=== PATIENT | female | born 1945 | race Caucasian/White ===

== ENCOUNTER 2017-08-20 08:09 | Day surgery (SDC) | payer MEDICARE ==
--- NOTE | 2017-08-20 06:00 | History and Physical Report ---
DATE: 08/20/2017. CHIEF COMPLAINT AND HISTORY OF CHIEF COMPLAINT: This patient presents with a history of an intractable lumbar radiculopathy. Due to the failure of therapy, a spinal cord stimulator trial was conducted on 07/29/2017 with 75 to 85 percent pain control. Due to the failure of therapy, she is here for implantation of a permanent system. PAST MEDICAL HISTORY: Hypertension, hypothyroidism. PAST SURGICAL HISTORY: To be provided. MEDICATIONS ON ADMISSION: To be provided. ALLERGIES: To be provided. SOCIAL HISTORY: Caffeine. FAMILY HISTORY: Thyroid, asthma, diabetes, coronary artery disease. REVIEW OF SYSTEMS: The patient is appropriate and in no acute distress. The remainder of the systems review shows glasses, headaches, thyroid disease, asthma, hypertension, bladder dysfunction, diverticular disease, fibromyalgia. PHYSICAL EXAMINATION: General: Height and weight unavailable. Vital Signs: Not available. HEENT: Within normal limits. Lungs: Clear. Heart: Regular rate and rhythm. Abdomen: Nontender. Musculoskeletal: Examination of the musculoskeletal system shows the primary pain pattern to be in the low back and left leg. Motor and sensory field function is intact. There are no obvious deficits and no weakness. Neurologic: Cranial nerves are intact. IMPRESSION: 1. POSTLUMBAR LAMINECTOMY SYNDROME, ICD-10 CODE M96.1. 2. RADICULOPATHY, ICD-10 CODE M54.16 AND M54.17. PLAN: The patient is here on an outpatient basis for implantation of a permanent spinal cord stimulator. The potential risks, side effects, and complications have all been carefully reviewed and discussed. Information from the brand designer was provided and reviewed. Clinical specialist interaction from the brand designer was also provided. The patient understands the potential risks, side effects, and complications and agrees to proceed. JOB NUMBER: [id number] cc: Nathan Zavala
[~2017-08-20 08:09] MED LIST: ACETAMINOPHEN 1,000 MG/100 ML BTL IV ONE; FAMOTIDINE 20MG TABLET PO ONE; MECLIZINE 25 MG TABLET PO ONE; METOCLOPRAMIDE 10 MG TABLET PO ONE; VANCOMYCIN HCL 1,000 MG in DEXTROSE 5 % IN WATER 250 ML IVPB ONE
[2017-08-20] MEDS ORDERED: LIDOCAINE 1% MDV (10MG/ML) 20ML VIAL SQ ONE (08:10)
[2017-08-20] MEDS ORDERED: VANCOMYCIN HCL 1 GM VIAL IVPB ONE (08:10)
[2017-08-20] MEDS ORDERED: MIDAZOLAM HCL 2MG/2ML VIAL IV ONE (08:10)
[2017-08-20] MEDS ORDERED: FENTANYL PF 100MCG/2ML VIAL IV ONE (08:10)
[2017-08-20] MEDS ORDERED: PROPOFOL 10 MG/ML VIAL IV ONE (08:10)
[2017-08-20] MEDS ORDERED: FLUMAZENIL 1MG/10ML VIAL IV ONE (08:10)
[2017-08-20] MEDS ORDERED: MORPHINE SULFATE 5 MG/ML PFS IVP ONE (08:10)
[2017-08-20] MEDS ORDERED: BUPIVACAINE 0.5% W/EPI MPF 30 ML VIAL IVP ONE (08:10)
[2017-08-20] MEDS ORDERED: LIDOCAINE 1% W/EPI 1:200,000 MPF 30ML SQ ONE (08:10)
[2017-08-20] MEDS ORDERED: ONDANSETRON HCL IV 4 MG/2 ML VIAL IVP ONE (08:10)
[2017-08-20] MEDS ORDERED: HYDROMORPHONE HCL 2 MG/ML VIAL IM PRN ×2 (10:52)
[2017-08-20] MEDS ORDERED: METOCLOPRAMIDE HCL 10 MG/2 ML VIAL IVP PRN (10:52)
[2017-08-20] MEDS ORDERED: DIPHENHYDRAMINE HCL 25 MG CAPSULE PO PRN ×2 (10:52)
[2017-08-20] MEDS ORDERED: TEMAZEPAM 15 MG CAPSULE PO PRN ×2 (10:52)
[2017-08-20] MEDS ORDERED: METOCLOPRAMIDE 10 MG TABLET PO PRN (10:52)
[2017-08-20] MEDS ORDERED: SENNOSIDES/DOCUSATE SODIUM UD CAPSULE PO PRN ×2 (10:52)
[2017-08-20] MEDS ORDERED: HYDROCODONE/APAP 7.5/325MG TABLET PO PRN (10:52)
[2017-08-20] MEDS ORDERED: DIPHENHYDRAMINE HCL 50 MG/ML VIAL IVP PRN ×2 (10:52)
[2017-08-20] MEDS ORDERED: OXYCODONE/APAP 10MG-325MG TABLET PO PRN ×2 (10:52)
[2017-08-20] MEDS ORDERED: AL HYDROX/MAG HYDROX 30ML UD PO PRN (10:52)
[2017-08-20] MEDS ORDERED: ACETAMINOPHEN 325 MG TAB PO PRN ×2 (10:52)
[2017-08-20] MEDS: HYDROCODONE/APAP 7.5/325MG TABLET PO PRN ×3 (14:10→23:33)
--- NOTE | 2017-08-20 17:39 | Operative Note - Ferro ---
DATE OF SURGERY: 08/20/17 PREOPERATIVE DIAGNOSES: POST LUMBAR LAMINECTOMY SYNDROME, ICD-10 = M96.1 WITH RADICULOPATHY ICD-10 CODE = M54.16 AND M54.17. OPERATION: 1. FLUOROSCOPICALLY-GUIDED EPIDURAL ACCESS RIGHT T12-L1, PLACEMENT OF SPINAL CORD STIMULATOR LEAD 1, A [employer] 16 WITH 6 ELECTRODES POSITIONED LEFT T6. 2. FLUOROSCOPICALLY-GUIDED EPIDURAL ACCESS RIGHT, T11-12. PLACEMENT OF SPINAL CORD STIMULATOR LEAD 2, A [employer] 16 WITH 6 ELECTRODES POSITIONED RIGHT, T6. 3. COMPLEX PROGRAMMING OF LEAD 1 OVER 20 MINUTES FOLLOWED BY COMPLEX PROGRAMMING OF LEAD 2 OVER 20 MINUTES. 4. INCISION, SUBCUTANEOUS DISSECTION, AND ANCHORING OF LEAD 1 AND LEAD 2 TO SUPRASPINOUS FASCIA USING [employer] LOCKING ANCHOR. 5. INCISION, SUBCUTANEOUS DISSECTION, AND FORMATION OF A SUBCUTANEOUS POUCH AT RIGHT POSTERIOR GLUTEAL MARGIN FOR PLACEMENT OF GENERATOR IDENTIFIED A [employer] WAVEWRITER RECHARGEABLE. 6. TUNNELING BETWEEN POUCHES, PLACEMENT OF EXTERNAL PORTION OF LEAD 1 AND LEAD 2 INTO GENERATOR POUCH, EACH LEAD INTERFACED WITH GENERATOR. 7. PLACEMENT OF GENERATOR POUCH SECURING TO POSTERIOR FASCIA WITH NONABSORBABLE SUTURE. PLACEMENTS OF LEADS INTO POUCH. CLOSURE OF BOTH INCISIONS, VICRYL FOR FASCIA AND A RUNNING SUBCUTICULAR VICRYL FOR SKIN. DERMABOND CLOSURE. 8. COMPLEX RECOVERY ROOM PROGRAMMING INTERNAL GENERATOR HOME USE TWO STIMULATORS , 20 MINUTES. SURGEON: PADMINI TORRES D.O. ANESTHESIA: LOCAL SEDATION. ANESTHESIA PROVIDER: STEPHANIE SANTOS CRNA. INDICATION: This patient presents with a history of intractable lumbar radiculopathy. Due to the failure of therapies, and a successful spinal cord stimulator trial, the patient presents today for implantation of a permanent system. PROCEDURE: Intravenous line, vital sign monitoring, IV sedation, prepped and draped in sterile technique. Under imaging, from the right, the epidural interspace at T11-12 and 12-1 were both identified, marked, infiltrated then using two curved access Epimed needles with [id number], the space was accessed. At 12-1, spinal cord stimulator lead 1, a [employer] Infinion 16 with 6 electrodes positioned left of the midline at T6. With the epidural access, same technique at 11-12, spinal cord stimulator lead 2, [employer] 16 with 6 electrodes positioned right at T6. Complex programming of lead 1 over 20 minutes followed by complex programming lead 2 over 20 minutes resulting in complete patterns of stimulation across the back and into the legs; patient indicating we are in all of the appropriate areas of the pain. The skin below both needles was then infiltrated, incision made, and subcutaneous dissection was conducted to the supraspinous fascia. She was given the option to implant, continue to program, or remove; she opted to implant with both sets of questions. Once the incision was made and the supraspinous fascia was exposed, the needle was removed then each was anchored to the supraspinous fascia with a [employer] [place] and nonabsorbable suture. At the right posterior gluteal margin, site picked by the patient for the generator, skin infiltrated, incision made, and subcutaneous dissection was conducted to form a pouch of suitable size and depth for the generator identified as a [employer] Wave[employer]. A tunneling tool was used to carry the lead into the generator pouch and then each lead was interfaced to the generator. Antibiotic irrigation and Bovie for hemostasis. The generator was placed into the pouch and secured to the posterior fascia with nonabsorbable suture. The leads were placed into their own pouch and then both incisions were closed Vicryl for fascia and a running subcuticular Vicryl for skin. Dermabond closure approximating the edges of both wounds. She was transported to the Recovery Room stable. No side-effects from the procedures or the sedation. When fully awake and alert, complex programming of the leads was then performed over 20 minutes re-establishing stimulation and pain control to all of the appropriate areas. She will be kept overnight for observation by her request and discharged in the morning. DISCHARGE INSTRUCTIONS: 1. Sites to remain clean and dry. No showering or bathing in any way although the Dermabond will allow showering. She cannot sit in water. 2. Standard medications resumed including the antibiotic Cipro, which she is not allergic to, 200 mg twice a day for 14 days. 3. She will resume normal medications. Activities should stay low until she comes to the office in 7-10 days to evaluate her incisions; that appointment will be scheduled by contacting the patient at home. All other instructions provided, numbers to contact, problems given, she will be evaluated in the office. cc: Dr. Judi Luke JOB NUMBER: [id number] [facility] [facility]
[2017-08-20] MEDS ORDERED: VANCOMYCIN HCL 1,000 MG in DEXTROSE 5 % IN WATER 250 ML IVPB ONE ×2 (22:00)
[2017-08-21] MEDS: HYDROCODONE/APAP 7.5/325MG TABLET PO PRN ×2 (03:44→07:15)
--- NOTE | 2017-08-22 07:22 | RADIOLOGY REPORT ---
DATE: 08/21/2017. EXAM: THORACIC SPINE. HISTORY: Pain pump stimulator placement. TECHNIQUE: Single AP view of the thoracic spine was performed. FINDINGS: Stimulator tips are at the T6-7 level. IMPRESSION: STIMULATOR LEAD TIPS ARE AT THE T6-7 LEVEL. JOB NUMBER: [id number] MTDD
== END 2017-08-21 10:05 | disposition home or self-care (01) ==
LOC: SUR 08:09 → MEDSURG 11:37 → SUR 08-21 10:05
PROVIDERS: ATTEND Pain Medicine Interventional Pain Medicine
DX: M54.16 Radiculopathy, lumbar region (principal); M54.17 Radiculopathy, lumbosacral region; I10 Essential (primary) hypertension
CPT/HCPCS: 72020; 95972; C1820; C1883; J2405; J2765; J7060